=== PATIENT | male | born 1980 | race Caucasian/White ===

== ENCOUNTER → 2018-01-11 | Outpatient (REF) | payer OTHER | LOC: M LAB REF 10:09 | DX: N60.01 Solitary cyst of right breast (principal) | CPT/HCPCS: 88305 ==

== ENCOUNTER → 2020-02-20 | Outpatient (CLI) | payer SELFPAY | LOC: M LABSMTC 12:57 | PROVIDERS: ATTEND Pediatrics | DX: Z20.828 Contact with and (suspected) exposure to other viral communicable diseases (principal) ==